=== PATIENT | female | born 1980 | race Two or more races ===

== ENCOUNTER → 2018-09-14 | Outpatient (CLI) | payer BC ==
[~2018-09-14] MED LIST: CIP500 PO; HYDR-3083 PO; IBU600 PO; KET10 PO; LOR5/325 PO; ONDA4TAB PO; PER PO; PRO25I IM; TAM4 PO
--- NOTE | 2018-09-14 13:22 | EKG ---
FACILITY: [facility] PATIENT NAME: NESTOR WHALEN : [id number] MR: [id number] V: [id number] EXAM DATE: ORDERING PHYSICIAN: JOSUÉ REYNOSO TECHNOLOGIST: Test Reason : Pre-op Blood Pressure : / mmHG Vent. Rate : 052 BPM Atrial Rate : 052 BPM P-R Int : 158 ms QRS Dur : 066 ms QT Int : 492 ms P-R-T Axes : 045 068 040 degrees QTc Int : 457 ms Sinus bradycardia Otherwise normal ECG No previous ECGs available Confirmed by JOSUÉ PATINO ([id number]) on 09/15/2018 6:27:30 AM Referred By: Confirmed By:JOSUÉ PATINO
== END ==
LOC: LAB 09:14
PROVIDERS: ATTEND Anesthesiology
DX: Z01.812 Encounter for preprocedural laboratory examination (principal); Z01.810 Encounter for preprocedural cardiovascular examination; R00.1 Bradycardia, unspecified
CPT/HCPCS: 36415; 82040; 82247; 82310; 82374; 82435; 82565; 82947; 84075; 84132; 84155; 84295; 84450; 84460; 84520; 93005

== ENCOUNTER → 2019-03-02 | Outpatient (CLI) | payer BC ==
--- NOTE | 2019-03-02 11:09 | EKG ---
[place] [facility] [place]IENT NAME: NESTOR WHALEN : [id number] MR: [id number] V: [id number] EXAM DATE: ORDERING PHYSICIAN: JOSUÉ REYNOSO TECHNOLOGIST: Test Reason : preop-knee Blood Pressure : / mmHG Vent. Rate : 054 BPM Atrial Rate : 054 BPM P-R Int : 156 ms QRS Dur : 088 ms QT Int : 472 ms P-R-T Axes : 037 053 028 degrees QTc Int : 447 ms Sinus bradycardia Possible Left atrial enlargement No ST-T abnormalities Relatively unchanged Confirmed by MARYAM BALDWIN ([id number]) on 03/02/2019 2:03:56 PM Referred By: Confirmed By:MARYAM BALDWIN
== END ==
LOC: LAB 10:49
PROVIDERS: ATTEND Anesthesiology
DX: Z01.812 Encounter for preprocedural laboratory examination (principal); Z01.810 Encounter for preprocedural cardiovascular examination; M24.662 Ankylosis, left knee; R00.1 Bradycardia, unspecified
CPT/HCPCS: 36415; 82040; 82247; 82310; 82374; 82435; 82565; 82947; 84075; 84132; 84155; 84295; 84450; 84460; 84520; 93005